=== PATIENT | male | born 1990 | race Two or more races ===

== ENCOUNTER 2020-03-26 19:46 | Emergency (ER) | payer OTHER ==
[~2020-03-26] VITALS: Ht 182.9 cm; Wt 90.9 kg
--- NOTE | 2020-03-26 20:16 | PHYS DOC ---
General Adult EDM: Chief Complaint: MECHANICAL FALL HPI: HPI: Patient is a 29 year old male patient who presents from consideration of surgery, patient reportedly had been on a metal bunk, and had fallen out striking his head on the ground. Patient reportedly had blacked out for a brief period of time. Patient states he is having some pain in his head, denies any pain in his neck, denies any pain in his back, extremities. Patient states he members laying in his bed, and next remembers was ending up on the ground. Patient denies nausea, vomiting, diarrhea. Patient denies additional complaints or concerns other than discomfort to his head and his lacerations (PATRICE MCKEON APRN) Review of Systems: Review of Systems: Constitutional: Denies fever or chills. [] Eyes: Denies change in visual acuity. [] HENT: Denies nasal congestion or sore throat. [] Respiratory: Denies cough or shortness of breath. [] Cardiovascular: Denies chest pain or edema. [] GI: Denies abdominal pain, nausea, vomiting, bloody stools or diarrhea. [] : Denies dysuria. [] Musculoskeletal: Denies back pain or joint pain. [] Integument: Reports laceration to posterior head [] Neurologic: Reports headache, denies focal weakness, denies sensory changes Endocrine: Denies polyuria or polydipsia. [] Lymphatic: Denies swollen glands. [] Psychiatric: Denies depression or anxiety. [] (PATRICE MCKEON APRN) Heart Score: Risk Factors: Risk Factors: DM, Current or recent (<one month) smoker, HTN, HLP, family history of CAD, obesity. Risk Scores: Score 0 - 3: 2.5% MACE over next 6 weeks - Discharge Home Score 4 - 6: 20.3% MACE over next 6 weeks - Admit for Clinical Observation Score 7 - 10: 72.7% MACE over next 6 weeks - Early Invasive Strategies (PATRICE MCKEON APRN) Physical Exam: PE: Constitutional: Well developed, well nourished, no acute distress, non-toxic appearance. [] HENT: Normocephalic, bilateral external ears normal, oropharynx moist, no oral exudates, nose normal. Laceration noted to posterior scalp, blood noted. [] Eyes: PERRLA, EOMI, conjunctiva normal, no discharge. [] Neck: Normal range of motion, no tenderness, supple, no stridor. No spinous process tenderness, c-collar in place on arrival [] Cardiovascular:Heart rate regular rhythm, no murmur [] Lungs & Thorax: Bilateral breath sounds clear to auscultation [] Abdomen: Bowel sounds normal, soft, no tenderness, no masses, no pulsatile masses. [] Skin: Warm, dry, no erythema, no rash. Laceration to posterior scalp, 2 lac erations noted to posterior scalp. 1.5 cm and 2 cm. bruising noted to left hip, anterior[] Back: No tenderness, no CVA tenderness. [] Extremities: No tenderness, no cyanosis, no clubbing, ROM intact, no edema. [] full ROM to left hip, Neurologic: Alert and oriented X 3, normal motor function, normal sensory functi on, no focal deficits noted. [] Psychologic: Affect normal, judgement normal, mood normal. [] (PATRICE MCKEON APRN) EKG: EKG: sinus ryhthm without ST changes. per Dr Lloyd @ 2009[] (PATRICE MCKEON APRN) Radiology/Procedures: Radiology/Procedures: CT Head W/O Contrast: History: Reason: trauma / Spl. Instructions: / History: Comparison: none Axial images were obtained without contrast. The crowley and white matter appears normal and symmetrical for the patients age. There is no mass effect, extraaxial fluid collections or hydrocephalus. There is no gross bleed. There is no focal loss of crowley-white matter distinction to suggest acute ischemia, i.e. stroke. Impression: No acute findings. End impression CT C-Spine without contrast: Clinical History: Reason: trauma / Spl. Instructions: / History: Technique: Axial helical images of the cervical spine were obtained without contrast, axial coronal and sagittal reconstruction was performed. Findings: There is no loss of vertebral body stature. There is no prevertebral soft tissue swelling. The vertebral bodies are well aligned. The C1-C2 relationship is normal. The visualized osseous structures appear normal. There is straightening of the normal cervical lordosis which can be positional or can be secondary to muscle spasm. Evaluation of the central canal is limited without contrast. Impression: No acute findings. Clinical correlation suggested. [] (PATRICE MCKEON APRN) Course & Med Decision Making: Course & Med Decision Making Pertinent Labs and Imaging studies reviewed. (See chart for details) [] Following imaging results, c-collar removed from neck. Wounds clean, jesi inserted. Discussed with patient and long forceps officers at side regarding staple removal in 10 days. Discussed wound care with patient. Patient in agreement with plan. No further questions or concerns. Patient returning to [place] potentially with police. (PATRICE MCKEON APRN) Dragon Disclaimer: Dragon Disclaimer: This electronic medical record was generated, in whole or in part, using a voice recognition dictation system. (PATRICE MCKEON APRN) Laceration Repair Lac Repair Indication: Laceration [] Procedure: The patient was placed in the appropriate position The area was then cleaned The laceration was closed with 4 jesi to the superior, 4 jesi to the inferior laceration. The wound area was then dressed with gauze. . Total repaired wound length: Laceration 1 2 cm laceration to 1.5 cm. Total length 3.5 cm Other Items: [OTHER ITEMS] The patient tolerated the procedure [well]. Complications: [COMPLICATIONS]. (PATRICE MCKEON APRN) Departure Departure Impression: Primary Impression: Fall Qualified Codes: W19.XXXA - Unspecified fall, initial encounter Additional Impression: Laceration of head Qualified Codes: S01.01XA - Laceration without foreign body of scalp, initial encounter Disposition: HOME, SELF-CARE Condition: GOOD Patient Instructions: Laceration Care, Adult, Staple Wound Closure, [id number] Additional Instructions: As discussed, jesi can come out in 10 days. Make sure that you are avoiding rubbing on the jesi to limit them being pulled out. Keep the gauze on it tonight, to limit the bleeding. Make sure you clean your head later on today. Justicifation of Admission Dx: Justifications for Admission: Justification of Admission Dx: N/A (PATRICE MCKEON APRN) Attending Signature Attending Signature I have reviewed the PA/AUTOMOTIVE WORKER's note and plan of care. I was available for consultation as needed during the patient's visit in the emergency department. I agree with the clinical impression, plan, and disposition. (ELOISE TIMMONS DO) PATRICE MCKEON APRN Mar 26, 2020 20:16 ELOISE TIMMONS DO Mar 27, 2020 02:07
--- NOTE | 2020-03-26 21:33 | RAD ---
CT Head W/O Contrast: History: Reason: trauma / Spl. Instructions: / History: Comparison: none Axial images were obtained without contrast. The crowley and white matter appears normal and symmetrical for the patients age. There is no mass effect, extraaxial fluid collections or hydrocephalus. There is no gross bleed. There is no focal loss of crowley-white matter distinction to suggest acute ischemia, i.e. stroke. Impression: No acute findings. End impression CT C-Spine without contrast: Clinical History: Reason: trauma / Spl. Instructions: / History: Technique: Axial helical images of the cervical spine were obtained without contrast, axial coronal and sagittal reconstruction was performed. Findings: There is no loss of vertebral body stature. There is no prevertebral soft tissue swelling. The vertebral bodies are well aligned. The C1-C2 relationship is normal. The visualized osseous structures appear normal. There is straightening of the normal cervical lordosis which can be positional or can be secondary to muscle spasm. Evaluation of the central canal is limited without contrast. Impression: No acute findings. Clinical correlation suggested. PQRS Compliance Statement: One or more of the following individualized dose reduction techniques were utilized for this examination: 1. Automated exposure control 2. Adjustment of the mA and/or kV according to patient size 3. Use of iterative reconstruction technique Electronically signed by: Mina Jones III, MD (03/26/2020 9:31 PM) [facility]
[2020-03-26 22:43] VITALS: BP 140/75
--- NOTE | 2020-03-30 09:55 | EKG ---
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
== END 2020-03-26 23:15 | disposition home or self-care (01) ==
LOC: ER 19:46 → EEVIPCON 19:46 → ER 23:15
DX: S01.01XA Laceration without foreign body of scalp, initial encounter (principal); S70.02XA Contusion of left hip, initial encounter; M54.2 Cervicalgia; R51 Headache; W18.09XA Striking against other object with subsequent fall, initial encounter; Y93.89 Activity, other specified; Y92.89 Other specified places as the place of occurrence of the external cause; Y99.8 Other external cause status
CPT/HCPCS: 12002; 70450; 72125; 93005; 99285-25